=== PATIENT | female | born 1965 | race Caucasian/White ===

== ENCOUNTER → 2016-09-19 | Day surgery (SDC) | payer OTHER ==
[~2016-09-19] VITALS: Ht 147.3 cm; Wt 81.8 kg
[~2016-09-19] MED LIST: ALPR0.5T3 PO; BUPIVACAINE HCL PF 0.5% 30 ML VIAL ONE; CEPH-460 PO; FAMOTIDINE 20 MG/2 ML VIAL ONE; FLUO0.05 TOPICAL; HYDR-3288 PO; HYDR25TA5 PO; LACTATED RINGER'S 1000 ML INJ 1,000 ML ONE; LIDOCAINE HCL 2% 50 ML VIAL ONE; LISI-515 PO; MECL-62 PO; MIDAZOLAM HCL 2 MG/2 ML VIAL ONE; MULTTAB67 PO; NEOMYCIN/POLYMYXIN 1 ML G.U. IRRIGANT IR ONE; ONDANSETRON HCL 4 MG/2 ML VIAL IV PUSH ONE; PARO10TA2 PO; PHENYLEPH/NS 1000 MCG/10 ML SYR IV ONE; PROPOFOL 200 MG/20 ML AMP IV ONE; SODIUM CHLORIDE 0.9% INJ 50 ML ONE; TRIAMCINOLONE ACETONIDE 40 MG/ML VIAL ONE; ceFAZolin INJ 1,000 MG VIAL ONE; ePHEDrine/NS 25 MG/5 ML SYR IV ONE
[2016-09-19 06:55] VITALS: BP 120/76; PULSE 69; RESP 18; TEMP 98.1; O2SAT 99
[2016-09-19 07:13] LABS: HEMATOCRIT 36.9 % (35.0-46.0); MEAN CELL VOLUME 86.6 FL (80.0-100.0); MEAN CORPUSCULAR HEMOGLOBIN 30.3 PG (27.0-34.0); PLATELET COUNT 243 TH/MM3 (150-450); RED BLOOD COUNT 4.27 MIL/MM3 (4.00-5.30); RED CELL DISTRIBUTION WIDTH 12.1 % (11.6-17.2); REVIEW FLAG FINAL; WHITE BLOOD COUNT 8.3 TH/MM3 (4.0-11.0)
--- NOTE | 2016-09-19 09:00 | HHI.PR ---
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
[2016-09-19 10:12] VITALS: BP 106/70; PULSE 72; RESP 16; TEMP 98; O2SAT 97
--- NOTE | 2016-09-19 13:16 | EKG ---
Date Performed: 09/19/2016 Time Performed: 07:21:22 PTAGE: 51 years EKG: Sinus rhythm . Poor R wave progression - probable normal variant Low QRS voltages in precordial leads Borderline E CG NO PREVIOUS TRACING DOCTOR: Nikolas Reece Interpretating Date/Time 09/19/2016 13:13:35
--- NOTE | 2016-09-23 10:10 | MP ---
cc: RICKEY LIZ III, M.D. DATE OF SURGERY: 09/19/2016 PREOPERATIVE DIAGNOSIS 1. Right carpal tunnel syndrome. 2. Right first CMC arthritis. POSTOPERATIVE DIAGNOSIS 1. Right carpal tunnel syndrome. 2. Right first CMC arthritis. PROCEDURE 1. Right open carpal tunnel release. 2. Right first CMC steroid injection. SURGEON Rickey Liz III, MD DETAILS OF PROCEDURE The patient was brought to the operating room and placed supine on the operating table. After the correct sites and side of surgery were verified by members of each team in the room multiple times including the patient and myself, and after adequate preoperative markings and preoperative written consent was verified by everyone, and after an adequate timeout was performed to everyone's satisfaction, and after adequate IV sedation was achieved, the right upper extremity was prepped and draped in traditional sterile surgical fashion. A 50/50 mixture of 2% plain lidocaine and 0.5% plain Marcaine was infiltrated in the skin and subcutaneous tissue at the base of palm. The right first CMC joint was sterilely injected with a 2:1 mixture of the local anesthetic and Kenalog 40 mg/ml for a total of 1.2 cc of injectate. The limb was exsanguinated with a gentle Maximus wrap. A highly placed well-padded tourniquet was inflated to 200 mmHg for a total of 9 minutes. A longitudinally oriented incision at the base of the palm was made and carried down through skin and subcutaneous tissue. Blunt dissection was performed. Subcutaneous bleeders were addressed with the bipolar electrocautery in the until fashion. The palmar fascia was retracted in opposite directions. The transverse carpal ligament was identified and transected in its entirety from its proximal most to its distal most extent under loupe visualization, completely freeing the carpal tunnel contents They were slightly hypovascular but there was moderately hypertrophic tenosynovium. There were no other anatomic abnormalities and there were no evidence of any mass effect. Thorough irrigation with saline was then performed. The skin edges were re-approximated using running and interrupted 4-0 nylon sutures. The hand and arm were thoroughly cleansed and dried. Betadine and Adaptic dressings were applied on top of the wounds followed by a bulky protective dressing. A circumferential dressing was then applied. The axillary tourniquet was released and the hand and all the fingers became immediately soft, pink and warm, and had brisk capillary refill of less than 2 seconds. The patient was awakened from anesthesia and transported to the post-anesthesia care unit awake and in stable condition. MD ESTUARDO Peralta III/LEOPOLDO /9:04 AM /10:02 AM
== END | disposition home or self-care (01) ==
LOC: PHSDC 06:11
PROVIDERS: ATTEND Orthopaedic Surgery Hand Surgery
DX: G56.01 Carpal tunnel syndrome, right upper limb (principal); M18.11 Unilateral primary osteoarthritis of first carpometacarpal joint, right hand; R94.31 Abnormal electrocardiogram [ECG] [EKG]
CPT/HCPCS: 01810; 20600; 36415; 64721; 85027; 93005; J0690; J2250; J2370; J2405; J3301; J7120

== ENCOUNTER 2017-12-15 08:49 | Emergency (ER) | payer OTHER ==
[~2017-12-15] VITALS: Ht 147.3 cm; Wt 83.0 kg
[~2017-12-15 08:49] MED LIST changes: +ALPR0.25 PO; -ALPR0.5T3 PO; -BUPIVACAINE HCL PF 0.5% 30 ML VIAL ONE; -CEPH-460 PO; -FAMOTIDINE 20 MG/2 ML VIAL ONE; -FLUO0.05 TOPICAL; -HYDR-3288 PO; +HYDR-3533 PO; -LACTATED RINGER'S 1000 ML INJ 1,000 ML ONE; -LIDOCAINE HCL 2% 50 ML VIAL ONE; +METH125I2 IM; -MIDAZOLAM HCL 2 MG/2 ML VIAL ONE; -NEOMYCIN/POLYMYXIN 1 ML G.U. IRRIGANT IR ONE; -ONDANSETRON HCL 4 MG/2 ML VIAL IV PUSH ONE; -PHENYLEPH/NS 1000 MCG/10 ML SYR IV ONE; +PRED20 PO; -PROPOFOL 200 MG/20 ML AMP IV ONE; -SODIUM CHLORIDE 0.9% INJ 50 ML ONE; -TRIAMCINOLONE ACETONIDE 40 MG/ML VIAL ONE; -ceFAZolin INJ 1,000 MG VIAL ONE; -ePHEDrine/NS 25 MG/5 ML SYR IV ONE
[2017-12-15 08:53] VITALS: BP 133/60; PULSE 92; RESP 22; TEMP 98.7; O2SAT 99
[2017-12-15] MEDS ORDERED: MELO15TA20 PO (09:02)
[2017-12-15] MEDS ORDERED: PAXI10TA8 PO (09:06)
[2017-12-15 09:10] VITALS: BP 103/60; PULSE 85; RESP 20; TEMP 97.8; O2SAT 98
--- NOTE | 2017-12-15 09:39 | PD ---
HPI Chief Complaint: Abdominal Pain Time Seen by Provider: 09:39 Travel History International Travel<30 days: No Contact w/Intl Traveler<30days: No Traveled to known affect area: No History of Present Illness HPI 52-year-old female came to the emergency room with history of right upper quadrant pain for past 3-4 days. Patient says the pain waxes and wanes and seems to be worse upon movement. Currently her pain is 8 out of 10 and is dull ache. It radiates down to the right lower quadrant. No history of vomiting or diarrhea. No history of constipation. She had a bowel movement this morning which was within normal limits. Patient had similar pain a few years ago and had gone to the emergency room where she was told it was from inflammation of her colon. Vital signs are stable. She appears to be uncomfortable. Patient said she went to work today and when she started getting the pain she was insisted by her colleagues to come to the emergency room. Her is here with her. [facility] Past Medical History Narrative Medical List of her past medical, surgical, social and family history reviewed from the nursing note. Cancer: No Cardiovascular Problems: Yes (HTN) Diabetes: No Endocrine: No Genitourinary: No Hepatitis: No Hiatal Hernia: No Hypertension: Yes Immune Disorder: No Musculoskeletal: No Neurologic: No Psychiatric: Yes (ANXIETY) Reproductive: No Respiratory: No Thyroid Disease: No Influenza Vaccination: Yes ?: Not LMP: 2 weeks ago Past Surgical History Abdominal Surgery: No AICD: No Cardiac Surgery: No Ear Surgery: No Endocrine Surgery: No Eye Surgery: No Genitourinary Surgery: No Gynecologic Surgery: No Joint Replacement: No Oral Surgery: Yes (WISDOM TEETH) Pacemaker: No Thoracic Surgery: No Other Surgery: Yes Social History Alcohol Use: Yes (OCCAS) Tobacco Use: No Substance Use: No Allergies-Medications (Allergen,Severity, Reaction): Coded Allergies: meperidine (Verified Allergy, Intermediate, hallucinations, 12/15/17) tramadol (Verified Adverse Reaction, Intermediate, Nausea/Vomiting, ) Comments List of her allergies reviewed from the nursing note. Reported Meds & Prescriptions Reported Meds & Active Scripts Active Alprazolam 0.25 Mg Tab 0.25 Mg PO DAILY PRN Lisinopril 20 Mg Tab 20 Mg PO DAILY Hydrochlorothiazide 25 Mg Tab 25 Mg PO DAILY Reported Paxil (Paroxetine HCl) 10 Mg Tab 5 Mg PO DAILY Meloxicam 15 Mg Tab 15 Mg PO DAILY Narrative Medication List of her home medications reviewed from the nursing note Review of Systems Except as stated in HPI: all other systems reviewed are Neg Gastrointestinal: Positive: Abdominal Pain Physical Exam Narrative GENERAL: Awake, alert, moderate to significant distress, anxious SKIN: Focused skin assessment warm/dry. HEAD: Atraumatic. Normocephalic. EYES: Pupils equal and round. No scleral icterus. No injection or drainage. ENT: No nasal bleeding or discharge. Mucous membranes pink and moist. NECK: Trachea midline. No JVD. CARDIOVASCULAR: Regular rate and rhythm. No murmur appreciated. RESPIRATORY: No accessory muscle use. Clear to auscultation. Breath sounds equal bilaterally. GASTROINTESTINAL: Abdomen soft, right upper quadrant tenderness, nondistended. Hepatic and splenic margins not palpable. MUSCULOSKELETAL: No obvious deformities. No clubbing. No cyanosis. No edema. NEUROLOGICAL: Awake and alert. No obvious cranial nerve deficits. Motor grossly within normal limits. Normal speech. PSYCHIATRIC: Appropriate mood and affect; insight and judgment normal. Data Data Last Documented VS Vital Signs Date Time Temp Pulse Resp B/P (MAP) Pulse Ox O2 Delivery O2 Flow Rate FiO2 12/15/17 10:38 74 16 101/59 (73) 97 Room Air 12/15/17 09:10 97.8 Orders Orders Complete Blood Count With Diff (12/15/17 09:52) Comprehensive Metabolic Panel (12/15/17 09:52) Lactic Acid (12/15/17 09:52) Urinalysis - C+S If Indicated (12/15/17 09:52) Ct Abd/Pel W/O Iv Contrast (12/15/17 09:52) Iv Access Insert/Monitor (12/15/17 09:52) Ecg Monitoring (12/15/17 09:52) Oximetry (12/15/17 09:52) Sodium Chlor 0.9% 1000 Ml Inj (Ns 1000 M (12/15/17 09:52) Sodium Chloride 0.9% Flush (Ns Flush) (12/15/17 10:00) Metoclopramide Inj (Reglan Inj) (12/15/17 10:00) Morphine Inj (Morphine Inj) (12/15/17 10:15) Urine Culture (12/15/17 10:03) I-Stat Profile (12/15/17 10:07) Ed Discharge Order (12/15/17 11:50) Labs Laboratory Tests Test 12/15/17 10:03 12/15/17 10:07 Urine Collection Type VOIDED Urine Color STRAW Urine Turbidity SL CLOUDY Urine pH 7.5 Urine Specific Boon LESS/EQUAL 1.005 Urine Protein NEG mg/dL Urine Glucose (UA) NEG mg/dL Urine Ketones NEG mg/dL Urine Occult Blood NEG Urine Nitrite NEG Urine Bilirubin NEG Urine Urobilinogen 0.2 MG/DL Urine Leukocyte Esterase LARGE Urine WBC 3-5 /hpf Urine WBC Clumps OCC Urine Squamous Epithelial Cells 6-8 /hpf Urine Bacteria OCC /hpf Microscopic Urinalysis Comment CULTURE INDICATED White Blood Count 10.1 TH/MM3 Red Blood Count 5.01 MIL/MM3 Hemoglobin 15.1 GM/DL Bedside Hemoglobin G/DL Hematocrit 44.4 % Bedside Hematocrit % Mean Corpuscular Volume 88.6 FL Mean Corpuscular Hemoglobin 30.0 PG Mean Corpuscular Hemoglobin Concent 33.9 % Red Cell Distribution Width 11.7 % Platelet Count 367 TH/MM3 Mean Platelet Volume 8.3 FL Neutrophils (%) (Auto) 72.2 % Lymphocytes (%) (Auto) 22.0 % Monocytes (%) (Auto) 4.5 % Eosinophils (%) (Auto) 0.8 % Basophils (%) (Auto) 0.5 % Neutrophils # (Auto) 7.2 TH/MM3 Lymphocytes # (Auto) 2.2 TH/MM3 Monocytes # (Auto) 0.5 TH/MM3 Eosinophils # (Auto) 0.1 TH/MM3 Basophils # (Auto) 0.1 TH/MM3 CBC Comment DIFF FINAL Differential Comment Bedside Sodium 138 MMOL/L Blood Urea Nitrogen 12 MG/DL Creatinine 0.73 MG/DL Random Glucose 109 MG/DL Total Protein 8.0 GM/DL Albumin 4.1 GM/DL Calcium Level 9.1 MG/DL Alkaline Phosphatase 99 U/L Aspartate Amino Transf (AST/SGOT) 17 U/L Alanine Aminotransferase (ALT/SGPT) 29 U/L Total Bilirubin 0.5 MG/DL Sodium Level 140 MEQ/L Potassium Level 3.7 MEQ/L Chloride Level 104 MEQ/L Carbon Dioxide Level 26.8 MEQ/L Bedside Potassium 3.2 MMOL/L Bedside Chloride 103 MMOL/L Anion Gap 9 MEQ/L Bedside Blood Urea Nitrogen MG/DL Bedside Creatinine MG/DL Estimat Glomerular Filtration Rate 84 ML/MIN Bedside Glucose 97 MG/DL Lactic Acid Level 1.3 mmol/L MDM Medical Decision Making Medical Screen Exam Complete: Yes Emergency Medical Condition: Yes Medical Record Reviewed: Yes Differential Diagnosis Biliary colic, acute cholecystitis, abdominal pain NOS Narrative Course 11:52 AM blood test results are back and within acceptable limits except for slightly low potassium. I will give her p.o. replacement. Patient was given IV fluid bolus and pain medication. CT scan was within normal limit. I will discharge her home. Procedures Procedure Narrative Emergency department right upper quadrant ultrasound was performed with patient consent. Curvilinear probe was used in the transverse and sagittal views within the right upper quadrant revealing gallbladder without obvious wall thickening, cholecystic fluid, or cholelithiasis. EKG Prior to Arrival: No Diagnosis Primary Impression: Abdominal pain, unspecified site Referrals: Primary Care Physician Additional Instructions: Take Tylenol/Motrin/ibuprofen for the pain as needed. These medications available [id number]. Follow-up with your primary care. You might need a referral to a GI specialist by her primary care. Return to the ER if condition worsens any other new concerns. Disposition: 01 DISCHARGE HOME Condition: Stable Malcolm Nolasco MD Dec 15, 2017 09:39
[2017-12-15] MEDS ORDERED: SODIUM CHLOR 0.9% 1000 ML INJ 1,000 ML IV SCH (09:52)
[2017-12-15] MEDS ORDERED: MORPHINE SULFATE 4 MG/ML INJ IV PUSH ONE (10:00)
[2017-12-15] MEDS ORDERED: METOCLOPRAMIDE HCL 10 MG/2 ML VIAL IV PUSH ONE (10:00)
[2017-12-15] MEDS ORDERED: SODIUM CHLORIDE 0.9% FLUSH 10 ML FLUSH IV FLUSH PRN (10:00)
[2017-12-15 10:07] VITALS: O2SAT 99
[2017-12-15 10:15] LABS: AUTOMATED NEUTROPHIL # 7.2 TH/MM3 (1.8-7.7); BASOPHIL # 0.1 TH/MM3 (0-0.2); BASOPHIL % 0.5 % (0.0-2.0); EOSINOPHIL # 0.1 TH/MM3 (0-0.4); EOSINOPHIL % 0.8 % (0.0-4.0); HEMATOCRIT 44.4 % (35.0-46.0); HEMOGLOBIN 15.1 GM/DL (11.6-15.3); LYMPHOCYTE # 2.2 TH/MM3 (1.0-4.8); MEAN CELL VOLUME 88.6 FL (80.0-100.0); MEAN CORPUSCULAR HGB CONC 33.9 % (32.0-36.0); MEAN PLATELET VOLUME 8.3 FL (7.0-11.0); MONO % 4.5 % (0.0-8.0); MONOCYTE # 0.5 TH/MM3 (0-0.9); NEUT % 72.2 % (16.0-70.0); PLATELET COUNT 367 TH/MM3 (150-450); RED BLOOD COUNT 5.01 MIL/MM3 (4.00-5.30); RED CELL DISTRIBUTION WIDTH 11.7 % (11.6-17.2); WHITE BLOOD COUNT 10.1 TH/MM3 (4.0-11.0)
[2017-12-15] MEDS ORDERED: MORPHINE SULFATE 2 MG/ML SYRINGE IV ONE (10:15)
[2017-12-15 10:19] LABS: BILIRUBIN, URINE NEG (NEG); BLOOD, URINE NEG (NEG); GLUCOSE,URINE NEG (NEG); KETONE, URINE NEG (NEG); NITRITE,URINE NEG (NEG); PH, URINE 7.5 (5.0-8.5); URINE LEUKOCYTE ESTERASE LARGE (NEG)
[2017-12-15 10:22] LABS: URINE COLOR STRAW (YELLW/STRAW)
[2017-12-15 10:27] VITALS: BP 94/50; PULSE 74; RESP 17; O2SAT 98
[2017-12-15 10:31] LABS: CALCIUM 9.1 MG/DL (8.5-10.1)
[2017-12-15 10:32] LABS: ALBUMIN 4.1 GM/DL (3.4-5.0); BICARBONATE 26.8 MEQ/L (21.0-32.0); BLOOD UREA NITROGEN 12 MG/DL (7-18); GLUCOSE,RANDOM 109 MG/DL (74-106)
[2017-12-15 10:34] LABS: ALT (GPT) 29 U/L (10-53)
[2017-12-15 10:35] LABS: AST (GOT) 17 U/L (15-37); CREATININE 0.73 MG/DL (0.50-1.00); GLOMERULAR FILTRATION RATE 84 ML/MIN (>89)
[2017-12-15 10:36] LABS: TOTAL BILIRUBIN ADULT 0.5 MG/DL (0.2-1.0)
[2017-12-15 10:37] LABS: ALKALINE PHOSPHATASE 99 U/L (45-117)
[2017-12-15 10:38] VITALS: BP 101/59; PULSE 74; RESP 16; O2SAT 97
[2017-12-15 10:41] LABS: BACTERIA, URINE OCC /hpf; WHITE BLOOD CELL CLUMPS OCC
--- NOTE | 2017-12-15 10:53 | RADRPT ---
EXAM DATE: 12/15/2017 10:17 AM EDT AGE/SEX: 52 years / Female INDICATIONS: Right upper quadrant pain. CLINICAL DATA: This is the patient's initial encounter. Patient reports that signs and symptoms have been present for 4 - 6 days and indicates a pain score of 8/10. MEDICAL/SURGICAL HISTORY: Hypertension. None. RADIATION DOSE: 23.00 CTDI (mGy) COMPARISON: No prior exams available for comparison. TECHNIQUE: Multiple contiguous axial images were obtained through the abdomen. Images were obtained using multiple row detector helical technique. Using dose reduction techniques, radiation dose was ke pt as low as reasonably achievable to obtain optimal diagnostic quality images. FINDINGS: The lower lungs are clear. The liver, spleen and pancreas unremarkable There are no gallstones identified. There are no inflammatory changes in the upper abdomen. Right and left kidneys unremarkable There is no ascites or adenopathy The pelvis there are no inflammatory changes evident. 2.7 cm cystic mass right adnexa region Uterus unremarkable There is no free fluid Abdominal downey intact Portable skeleton visualized is unremarkable. CONCLUSION: 1. Negative for acute process. Do not see an etiology of patient's right upper quadrant pain. There are no gallstones identified. Electronically signed by: Edwin Marin MD 12/15/2017 10:51 AM EDT
[2017-12-15 11:49] LABS: CHLORIDE 104 MEQ/L (98-107); SODIUM (NA) 140 MEQ/L (136-145)
[2017-12-15] MEDS ORDERED: POTASSIUM CHLORIDE 25 MEQ EFFERVESCENT TAB PO ONE (12:00)
[2017-12-15 12:14] VITALS: BP 102/55; PULSE 72; RESP 18; O2SAT 98
== END 2017-12-15 12:28 | disposition home or self-care (01) ==
LOC: PHED 08:49
DX: R10.11 Right upper quadrant pain (principal); B96.89 Other specified bacterial agents as the cause of diseases classified elsewhere; I10 Essential (primary) hypertension; F41.9 Anxiety disorder, unspecified
CPT/HCPCS: 74176; 80053; 81001; 83605; 85025; 87086; 96361; 96374; 96375; 99284; J2270; J2765; J7030; 80048